=== PATIENT | female | born 1965 | race Caucasian/White ===

== ENCOUNTER 2022-09-14 07:47 | Day surgery (SDC) | payer MEDICARE ==
[2022-09-14] VITALS (10 sets, daily range): BP systolic 108–123; BP diastolic 60–79
[~2022-09-14] VITALS: Ht 167.6 cm; Wt 89.0 kg
[2022-09-14] MEDS ORDERED: sodium bicarbonate (8.4%) inj. 150 ML in dextrose 5%-water 1,000 ML IV ONE (08:10)
[2022-09-14] MEDS ORDERED: normal saline 1,000 ML IV SCH (08:10)
[2022-09-14] MEDS ORDERED: diphenhydrAMINE 25mg capsule PO PRN (08:10)
[2022-09-14] MEDS ORDERED: ALLO300T8 PO (08:19)
[2022-09-14] MEDS ORDERED: LOSA50TA64 PO (08:19)
[2022-09-14] MEDS ORDERED: HYDR2TAB7 PO (08:19)
[2022-09-14] MEDS ORDERED: METH-798 PO (08:19)
[2022-09-14] MEDS ORDERED: GABA600T13 PO (08:19)
[2022-09-14] MEDS ORDERED: METH-603 PO ×2 (09:00→09:54)
[2022-09-14] MEDS ORDERED: IRON 27 MG (09:14)
[2022-09-14] MEDS ORDERED: DULA4.5P (09:14)
[2022-09-14] MEDS ORDERED: MAGN100T6 PO (09:15)
[2022-09-14] MEDS ORDERED: CHLO500T3 PO (09:18)
[2022-09-14 09:36] LABS: BASOPHILS % (AUTO) 0.3 % (0-1); EOSINOPHILS # (AUTO) 0.1 X10'3 (0-0.9); EOSINOPHILS % (AUTO) 1.4 % (0-6); HEMATOCRIT 40.6 % (35.0-45.0); HEMOGLOBIN 13.8 g/dl (12.0-16.0); LYMPHOCYTES # (AUTO) 2.8 X10'3 (1.1-4.8); LYMPHOCYTES % (AUTO) 32.5 % (21-51); MEAN CORPUSCULAR HEMOGLOBIN 30.7 PG (27.0-31.0); MEAN CORPUSCULAR VOLUME 90.2 FL (78-98); MEAN PLATELET VOLUME 7.6 FL (7.4-10.4); MONOCYTES # (AUTO) 0.5 X10'3 (0-0.9); MONOCYTES % (AUTO) 5.9 % (2-12); NEUTROPHILS # (AUTO) 5.1 X10'3 (1.8-7.7); NEUTROPHILS % (AUTO) 59.9 % (42-75); PLATELET COUNT 309 X10'3 (140-440); RED CELL DISTRIBUTION WIDTH 16.1 % (11.5-14.5); WHITE BLOOD COUNT 8.5 X10'3 (4.5-11.0)
[2022-09-14 09:45] LABS: ALBUMIN 3.9 G/DL (3.4-5.0); ANION GAP 7 (8-16); BLOOD UREA NITROGEN 13 MG/DL (7-18); BUN/CREATININE RATIO 13.5 (6.6-38.0); CALCIUM 9.3 MG/DL (8.5-10.1); CHLORIDE 106 MMOL/L (99-107); CREATININE 0.96 MG/DL (0.40-0.90); GLUCOSE 83 MG/DL (70-104); MAGNESIUM 2.1 MG/DL (1.5-2.4); POTASSIUM 3.8 MMOL/L (3.5-5.1); SODIUM 143 MMOL/L (135-145); TOTAL CARBON DIOXIDE 29.6 MMOL/L (24-32); eGFR 60 ML/MIN
[2022-09-14] MEDS ORDERED: DOCU100C40 PO (09:46)
[2022-09-14] MEDS ORDERED: CHOL100046 PO (09:47)
[2022-09-14] MEDS ORDERED: MULT-1085 PO (09:48)
[2022-09-14] MEDS ORDERED: RAW CALCIUM PO (09:49)
[2022-09-14] MEDS ORDERED: [UNRECOGNIZED DRUG - OTHER] PO (09:49)
[2022-09-14] MEDS ORDERED: DULA4.5P SQ (09:51)
[2022-09-14] MEDS ORDERED: FOLI0.4T6 PO (09:54)
[2022-09-14] MEDS ORDERED: SEMA2PEN SQ (09:54)
[2022-09-14] MEDS ORDERED: nitroGLYCERIN-Tridil 50MG/D5W 250 ML IV ONE (13:56)
[2022-09-14] MEDS ORDERED: fentaNYL/PF 50MCG/1 ML 2ML syringe ONE (13:56)
[2022-09-14] MEDS ORDERED: LIDOcaine 1% (10mg/ml) 2ml vial ONE (13:56)
[2022-09-14] MEDS ORDERED: heparin 1,000unit/ml 10ml vial 10 ML ONE (13:56)
[2022-09-14] MEDS ORDERED: verapamil 2.5 mg/ml inj IV ONE (13:56)
[2022-09-14] MEDS ORDERED: midazolam 1 mg/ML 2ml injection ONE ×2 (13:56→14:27)
[2022-09-14] MEDS ORDERED: iohexol 350MG/ML 100ml bottle IV ONE (13:57)
[2022-09-14] MEDS ORDERED: HYDROmorphone 1 mg/ml syringe ONE (14:21)
[2022-09-14] MEDS ORDERED: iohexol 350 MG/ML 50ML vial IV ONE (14:32)
[2022-09-14] MEDS ORDERED: HYDROcodone/acetaminophen 5mg/325mg tablet PO PRN (15:20)
[2022-09-14] MEDS ORDERED: proCHLORperazine 10 MG/2 ml inj IV PRN (15:20)
[2022-09-14] MEDS ORDERED: ondansetron/PF 4mg/2ml inj IV PRN (15:20)
[2022-09-14] MEDS ORDERED: HYDROcodone/acetaminophen 10/325mg tab PO PRN (15:20)
[2022-09-14] MEDS ORDERED: normal saline 1000ml 1,000 ML IV SCH (15:25)
== END 2022-09-14 18:30 | disposition home or self-care (01) ==
LOC: SSTAY O 07:47
PROVIDERS: ATTEND Internal Medicine Cardiovascular Disease
DX: R07.9 Chest pain, unspecified (principal); R94.39 Abnormal result of other cardiovascular function study; I10 Essential (primary) hypertension; E11.9 Type 2 diabetes mellitus without complications; Z98.890 Other specified postprocedural states; Z90.49 Acquired absence of other specified parts of digestive tract; Z79.899 Other long term (current) drug therapy; Z98.84 Bariatric surgery status; Z88.6 Allergy status to analgesic agent; Z88.8 Allergy status to other drugs, medicaments and biological substances
CPT/HCPCS: 36415; 80048; 82948; 83735; 85025; 85610; 93005; 93458; 99152; 99153; A6258; C1769; C1894; J1170; J1644; J2250; J3010; J3490; J7030; Q0163; Q9967; A4620; A6402